=== PATIENT | female | born 1970 | race Caucasian/White ===

== ENCOUNTER 2020-07-20 18:16 | Emergency (ER) | payer OTHER ==
[2020-07-20 21:11] VITALS: BP 130/81
[2020-07-20] MEDS ORDERED: ACETAMINOPHEN 500 MG TABLET ONE (21:57)
[2020-07-20] MEDS ORDERED: ACETAMINOPHEN 500 MG TABLET PO ONE (22:00)
== END 2020-07-20 22:06 | disposition home or self-care (01) ==
LOC: ED 21:23
DX: M54.2 Cervicalgia (principal); R51.9 Headache, unspecified; R42 Dizziness and giddiness; V89.2XXA Person injured in unspecified motor-vehicle accident, traffic, initial encounter; Y93.89 Activity, other specified; Y92.410 Unspecified street and highway as the place of occurrence of the external cause; Y99.8 Other external cause status
CPT/HCPCS: 70450; 72125; 99285